=== PATIENT | male | born 1980 | race Caucasian/White ===

== ENCOUNTER → 2019-05-03 10:47 | Outpatient (CLI) | payer BC, SELFPAY ==
[2019-05-03 10:20] VITALS: BMI 23.3
--- NOTE | 2019-05-03 10:51 | RAD_ITS ---
STUDY: X-RAY - LUMBAR SPINE REASON FOR EXAM: Male, 38 years old. Left-sided low back pain. TECHNIQUE: 5 view(s) of the lumbar spine were obtained including oblique views. COMPARISON: None FINDINGS: There is straightening of the normal lumbar lordosis. There is no substantial scoliosis. There is a normal alignment of the vertebrae. Normal vertebral bodies and endplates. Normal disc space heights. Phleboliths are seen in the left hemipelvis. RAD/L/S Spine Min 4 Views IMPRESSION: Straightening of the normal lumbar lordosis. Electronically Signed: Abad Enamorado, at 12:21 EDT , Service support ,
== END ==
PROVIDERS: Referring Provider Physician Assistant Surgical; Visit Provider Physician Assistant Surgical
DX: S39.012A Strain of muscle, fascia and tendon of lower back, initial encounter (principal)
CPT/HCPCS: 72110

== ENCOUNTER 2025-05-17 18:15 | Emergency (ER) | payer SELFPAY ==
[2025-05-17 18:15] VITALS: BP 132/103; PULSE 58; RESP 18; TEMP 37.1; O2SAT 100; BMI 21.2
--- NOTE | 2025-05-17 18:29 | EDS_ITS ---
HPI History of Present Illness Chief Complaint: Wound Detail of Chief Complaint: Infection due to brown recluse spider bite. Informant: patient Onset/Context/Timing Onset: Days Context: Sudden Onset Timing: Continuous Quality: Noted blisters dorsum of his foot that with redness dorsum of the foot note Location: Dorsum left foot Current Severity: Mild Maximum Severity: Moderate Worsened by: Wearing a camping equipment that rubbed on his foot. Relieved by: Nothing Associated Symptoms Associated Symptoms: Did not feel his normal self Narrative Narrative: Patient is a 44-year-old male. He lives in [place]. [place] [facility] [place]. He denies fever, chills night sweats. He denies history rheumatic fever, heart murmur etc. He is concerned because it is painful, red and there are blisters noted. He is on no immunosuppressive meds. Prior similar symptoms: No Recent Illness/Hospitalization: No [facility] Medical History Anemia Home Medications ?Medication ?Instructions ?Recorded ?Last Taken ?Type naproxen sodium 220 mg capsule 220 mg PO BID 05/03/19 Unknown History (Aleve) prednisone 10 mg tablet PO #30 tabs 05/03/19 Unknown History cephalexin 500 mg capsule 500 mg PO Q6 #27 CAPSULES Unknown Rx sulfamethoxazole 800 1 tab PO BID #13 TABLETS 12/10 Unknown Rx mg-trimethoprim 160 mg tablet Allergy/AdvReac Type Severity Reaction Status Date / Time No Known Allergies Allergy Verified 05/17/25 18:15 Surgical History History of knee surgery Social History Smoking Status: Light Smoker (<10/day) alcohol intake: current alcohol intake frequency: a few times a week Alcohol type: beer ROS ROS ED Constitutional Constitutional ED: Denies chills, fever(s), subjective or sweats Gastrointestinal Gastrointestinal: Denies nausea or vomiting Integumentary Reports rash; Denies abscess or Abrasions Neurologic Neurologic: Denies paresthesias or weakness Hematologic/Lymphatic Hematologic/Lymphatic: Denies easy bleeding, easy bruising or lymphadenopathy EXAM Physical Exam Const Vital Signs: 05/17/25 18:15 Temperature 98.7 F Temperature Source Oral Pulse Rate 58 L Respiratory Rate 18 Blood Pressure 132/103 H Blood Pressure Mean 112 Pulse Ox 100 Oxygen Delivery Method Room Air Positive well nourished and well developed General Appearance ED: well developed and NAD; Negative for cyanotic, diap horetic or pallor HEENT HEENT Narrative: Head is atraumatic no cephalic. Ears normal. Nares patent. Eyes PERRL and EOMs intact bilaterally General Eye ED: Negative for scleral icterus Resp normal respiratory effort and clear to auscultation bilaterally Cardio regular rate, regular rhythm, S1 normal heart sound, S2 normal heart sound and no murmurs Extremity Negative for normal to inspection Extremity Narrative: Patient has area of erythema that is 3 x 4 cm dorsum of the foot. There are 2 blisters noted over in the middle of the erythema. There is no lymphangitis. There is no popliteal nick lymphadenopathy. There is no induration. The area is slightly warm. Neuro oriented x3, CN's II-XII intact bilaterally and no sensory deficits noted Motor Exam: strength 5/5 throughout Psych mental status grossly normal Skin No no rashes or lesions noted, no wounds and skin turgor normal General Skin Exam: elasticity normal; Negative for jaundice or pallor MDM MDM MDM Narrative Medical decision making narrative: Needle aspirate was undertaken. There is no fluid aspirated. The area erythema was demarcated with a skin pen. Patient received first dose of antibiotics in the emergency department and was prescribed 7-day course of antibiotics. He was instructed to return since he is not from this area if symptoms do not improve in 48 hours. Discharge Plan Triage Chief Complaint: Wound ED Provider: Luan Pandey Dx/Rx/DC Orders Clinical Impression: Cellulitis of foot without toes, right, Elevated blood-pressure reading without diagnosis of hypertension Instructions: ED Cellulitis Prescriptions: New sulfamethoxazole-trimethoprim 800-160 mg tablet 1 tab PO BID Qty: 13 0RF cephalexin 500 mg capsule 500 mg PO Q6 Qty: 27 0RF No Action prednisone 10 mg tablet PO Qty: 30 naproxen sodium [Aleve] 220 mg capsule 220 mg PO BID Activity Restrictions/Additional Instructions: If there is no improvement within 48 hours or the redness goes beyond the atkins by 1 to 2 cm return to the emergency department Take antibiotics as prescribed until gone Print Language: Romanian Disposition Disposition: Home, Self Care
--- OUTSIDE RECORDS SUMMARY | 2025-05-17 18:46 | XMS RPT_ITS | CCD ---
Author Organization [facility] Care Team Providers Care Gaming Cashier Name Role Phone TEODORO WHITAKER Attending Unavailable NO, PHYSICIAN Primary Care Unavailable No, Physician Primary Care Provider Unavailabl e Medications Current Medications Medication Drug Class(es) Dates Sig (Normalized) Sig (Original) cephalexin 500 mg oral capsule (1 source) Cephalosporin Antibacterial Start: 04-07-2019 End: 04-14-2019 take 1 capsule by mouth three times daily cephALEXin (KEFLEX) 500 MG capsule Take 1 (one) capsule (500 mg total) by mouth 3 (three) times a day for 7 days . 21 capsule 0 04/07/2019 04/14/2019 Active Problems Problem Classification Problem Date Documented Da te Episodic/Chronic Skin and subcutaneous tissue infections (1 source) Cellulitis and abscess of buttock; Translations: [Cellulitis and abscess of buttock] Episodic Results Test Name Value Interpretation Reference Range Facil ity L/S Spine Min 4 Viewson 04-15 L/S Spine Min 4 Views [facility] Imaging Services [address] [place] [address] L/S Spine Min 4 Views MR#: [id number] Acct: [id number] Name: EDIL STEPHENS Rep #: [id number] : 1980 M 38 From: Abad Enamorado MD PCP: Status: REG CLI Study: L/S Spine Min 4 Views Date of Exam: 05/03/19 Exam# [id number] Ordering Dr: Chivo Montalvo STUDY: X-RAY - LUMBAR SPINE REASON FOR EXAM: Male, 38 years old. Left-sided low back pain. TECHNIQUE: 5 view(s) of the lumbar spine were obtained including oblique views. COMPARISON: None FINDINGS: There is straightening of the normal lumbar lordosis. There is no substantial scoliosis. There is a normal alignment of the vertebrae. Normal vertebral bodies and endplates. Normal disc space heights. Phleboliths are seen in the left hemipelvis. RAD/L/S Spine Min 4 Views IMPRESSION: Straightening of the normal lumbar lordosis. Electronically Signed: Abad Matthewgabe, at 12:21 EDT , Service support , CC: Chivo CLAY [facility] Representative: Signed Normal [facility] Visit Reporton 0 05-03-2019 Urgent Care Visit Report [facility] [address] [place] [address] [address] [place] [address] OFFICE VISIT Date of Service: 05/03/19 MR#: [id number] Acct: [id number] Name: EDIL STEPHENS Rep #: [id number] : 1980 Provider: Chivo CLAY Age/Sex: 38/M Location: [facility] Status: Signed Intake Vital Signs05/03/19 Height 6 ft 05/03/19 Weight: 172 lb 05/03/19 Body Mass Index (BMI) 23.3 05/03/19 Blood Pressure 130/82 H Intake Visit Reasons: ? Allergies No Known Allergies Allergy (Unverified 05/03/19 10:21) Medications naproxen sodium 220 mg capsule 220 mg PO BID 05/03/19 [History Confirmed 05/03/19] prednisone 10 mg tablet PO #30 tab 05/03/19 [History Confirmed 05/03/19] [facility] Medical History (Updated 05/03/19 @ 10:34 by OBED Joya) Anemia (Acute) Surgical History (Updated 05/03/19 @ 10:22 by Liliana Blankenship) History of knee surgery (Acute) Social History (Updated 05/03/19 @ 17:00 by OBED Joya) Smoking Status: Light Smoker (<10/day) alcohol intake: current alcohol intake frequency: a few times a week Alcohol type: beer HPI HPI Details: EDIL STEPHENS, is a 38 M who presents to the office today for complaint of left-sided back and upper leg pain. Patient does report a history of thoracic vertebra compression fracture 15 years ago. 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 He states that the pain is worse at night after he stops moving but as long as he is walking around during the day his pain is almost nonexistent. He does state that the pain does cause him to wake up in the middle the night however when he goes to bed initially he has no pain. He does state that he has had some tingling in the toes of his left foot and down the left calf however he denies any numbness, or loss of range of motion. No other associated symptoms or alleviating/aggravatin g factors. ROS Const Constitutional: Positive for other (6 system ROS completed with pertinent findings in the HPI otherwise normal.) Exam Const General: cooperative, healthy appearing Musc Cervical Spine: normal cervical lordosis and cervical ROM normal Thoracic/Lumbar Spine: thoraco-lumbar ROM normal, paraspinal tenderness on the left in the lower lumbar Other: Pain to palpation over the sciatic nerve with no midline tenderness. Patient remains with full range of motion, sensation and distal pulses. Skin General: no rashes or lesions noted Neuro General: alert, CN's II-XI intact bilaterally Gait: normal gait Extrem General: normal to inspection, full ROM, normal capillary refill, normal gait Psych Appearance: grossly normal Mental Status: mental status grossly normal Assessment AND Plan Problems 1. Strain of lumbar region, initial encounter S39.012A Status Acute Plan X-ray of the spine read by myself as normal. Awaiting radiology interpretation of patient discharge. Patient given referral to physical therapy for the left leg pain and back pain. Advised he may use ibuprofen or Tylenol as needed for pain as well as rest, ice. Patient advised of potential red flags and when appropriate to report to the ED. Patient verbalized understanding and agreement with all the above Orders Orders: Referrals: Coding Level of Care Code Off vis,new,level 4 Diagnoses Strain of lumbar region, initial encounter S39.012A Encounter type: initial encounter 05/03/19 1700 Date Chivo Restrepoigner Signature: Date (if applicable) CC: Normal [facility] Vital Signs Date Time Vital Sign Value Performing Clinician Faci litjo 04-07-2019 11:23-0400 BP Diastolic 87 mm[Hg] Teodoro marr [facility] 04-07-2019 11:23-0400 BP Systolic 138 mm[Hg] Teodoro orozco [facility] 04-07-2019 11:04-0400 Body Temperature 97.3 [degF] Teodoro Whitaker [facility] 04-07-2019 11:04-0400 Body weight 78.02 kg Teodoro orozco [facility] 04-07-2019 11:04-0400 Pulse (Heart Rate) 61 /min Shameka Whitaker [facility] 04-07-2019 11:04-0400 Pulse Oximetry 98 % Teodoro wilder [facility] 04-07-2019 11:04-0400 Respiratory Rate 12 /min Teodoro Whitaker [facility] Encounters Encounter Date Encounter Type Care Provider Facility Start: 04-07-2019 End: 04-07-2019 Patient encounter procedure TEODORO WHITAKER [facility] Start: 04-07-2019 End: 04-07-2019 Office outpatient visit 25 minutes Teodoro Whitaker Work Phone: [facility] Comment on above: Cellulitis and absce ss of buttock (Primary Dx) Plan of Treatment Date Care Activity Detail Author Start: 06-16-2019 Influenza vaccination given SE QUENTIAL INFLUENZA VACCINE (Season Ended) [facility] Start: 1984 History and physical examination, annual for health maintenance Wellness Visit [facility] Start: 1980 Tetanus vaccination TETANUS EVERY 10 YR [facility] Payers Date Payer Category Payer Unknown [id number] 2017 Unknown MARKOS PAL/PREF/HMO/PPO xxxxxxxxxxxx 2017-Present [id number] 1980 Unknown [id number] Social History Date Type Detail Facility Start: 04-07-2019 Tobacco smoking status NEIS Current every day smoker [facility] History of tobacco use Cigarette Smoker [facility] Start: 04-07-2019 Cigarettes smoked cu rrent (pack per day) - Reported [facility] Sex Assigned At Not on file [place] [facility] Summary Purpose Family History No Family History Records FoundNo Family History Records Found Advance Directives Documents on File Type Date Recorded Patient Real Estate Closing Coordinator Expl anation Advance Directives and Living Will Instructions * Patient Instructions* Teodoro Whitaker PA-C - 04/07/2019 11:18 AM EDT Cellulitis: Care Instructions Your Care Instructions Cellulitis is a skin infection caused by bacteria, most often strep or staph. It often occurs aftera break in the skin from a scrape, cut, bite, or puncture, or after a rash. Cellulitis may be treated without doing tests to find out what caused it. But your doctor may do tests, if needed, to look for a specific bacteria, like methicillin-resistant Staphylococcus aureus (MRSA). The doctor has checked you carefully, but problems can develop later. If you notice any problems ornew symptoms, get medical treatment right away. Follow-up care is a granados part of your treatment and safety. Be sure to make and go to all appointments, and call your doctor if you are having problems. It's also a good idea to know your test resultsand keep a list of the medicines you take. How can you care for yourself at home? Take your antibiotics as directed. Do not stop taking them just because you feel better. You need to take the full course of antibiotics. Prop up the infected area on pillows to reduce pain and swelling. Try to keep the area above the level of your heart as often as you can. If your doctor told you how to care for your wound, follow your doctor's instructions. If you did not get instructions, follow this general advice: ? Wash the wound with clean water 2 times a day. Don't use hydrogen peroxide or alcohol, which can slow healing. ? You may cover the wound with a thin layer of petroleum jelly, such as Vaseline, and a nonstick bandage. ? Apply more petroleum jelly and replace the bandage as needed. Be safe with medicines. Take pain medicines exactly as directed. ? If the doctor gave you a prescription medicine for pain, take it as prescribed. ? If you are not taking a prescription pain medicine, ask your doctor if you can take an [id number] medicine. To prevent cellulitis in the future Try to prevent cuts, scrapes, or other injuries to your skin. Cellulitis most often occurs where there is a break in the skin. If you get a scrape, cut, mild burn, or bite, wash the wound with clean water as soon as you can tohelp avoid infection. Don't use hydrogen peroxide or alcohol, which can slow healing. If you have swelling in your legs (edema), support stockings and good skin care may help prevent leg sores and cellulitis. Take care of your feet, especially if you have diabetes or other conditions that increase the risk of infection. Wear shoes and socks. Do not go barefoot. If you have athlete's foot or other skin problems on your feet, talk to your doctor about how to treat them. When should you call for help? Call your doctor now or seek immediate medical care if: You have signs that your infection is getting worse, such as: ? Increased pain, swelling, warmth, or redness. ? Red streaks leading from the area. ? Pus draining from the area. ? A fever. You get a rash. Watch closely for changes in your health, and be sure to contact your doctor if: You do not get better as expected. Where can you learn more? Log into your personal health record on https://SpecifiedByt.yepme.com and enter X309 in the Education box to learn more about Cellulitis: Care Instructions. Current as of: January 30, 2018 Content Version: 12.0 6882-4454 [employer]. Care instructions adapted under license by your healthcare professional. If you have questions about a medical condition or this instruction, always ask your healthcare professional. [employer] disclaims any warranty or liability for your use of this information. Please follow up with your family doctor in three to five days or sooner if worse. Discussed over the counter medications for symptomatic management and side effects of medications. Recommended taking all medications with food and to stop medications if they develop any signs of anallergic reaction. Educated patient and/or guardian about signs and symptoms that would warrant further immediate evaluation. Recommended that they should return to urgent care, make an appointment with their family physician, or go to the emergency room if symptoms persist or get acutely worse. Recommended follow upwithin the next week with their PCP or to get established with a PCP soon in order to follow up appropriately. documented in this encounter History of Present Illness * Teodoro Whitaker PA-C - 04/07/2019 12:11 PM EDT Subjective: Edil Stephens is a 38 y.o. male being seen 04/07/19 for Rash (rash on L buttcheek; spreading; started Monday when he noticed it) Ran last week and used body anti chaffing product and his underwear was rubbing on the back of his left upper leg. It has now become red and tender to the touch. Rash This is a new problem. The current episode started in the past 7 days. The problem has been gradually worsening since onset. The affected locations include the left buttock and left upper leg. The rash is characterized by burning, dryness, pain, redness and swelling. He was exposed to a new detergent/soap. Pertinent negatives include no anorexia, congestion, cough, diarrhea, eye pain, facial edema, fatigue, fever, joint pain, nail changes, rhinorrhea, shortness of breath, sore throat or vomiting. Past treatments include nothing. The treatment provided no relief. There is no history of allergies, asthma, eczema or varicella. Review of Systems Constitutional: Negative for fatigue and fever. HENT: Negative for congestion, rhinorrhea and sore throat. Eyes: Negative for pain. Respiratory: Negative for cough and shortness of breath. Gastrointestinal: Negative for anorexia, diarrhea and vomiting. Musculoskeletal: Negative for joint pain. Skin: Positive for rash. Negative for color change, nail changes, pallor and wound. Histories: Current Outpatient Medications Medication Sig Dispense Refill cephALEXin (KEFLEX) 500 MG capsule Take 1 (one) capsule (500 mg total) by mouth 3 (three) times a day for 7 days . 21 capsule 0 No current facility-administered medications for this visit. No Known Allergies History reviewed. No pertinent past medical history. Past Surgical History: Procedure Laterality Date KNEE SURGERY Left 2008 Family History Problem Relation Age of Onset No Known Problems Mother No Known Problems Father Social History Socioeconomic History Marital status: Spouse name: Not on file Number of children: Not on file Years of education: Not on file Highest education level: Not on file Occupational History Not on file Social Needs Financial resource strain: Not on file Food insecurity: Worry: Not on file Inability: Not on file Transportation needs: Medical: Not on file Non-medical: Not on file Tobacco Use Smoking status: Current Every Day Smoker Packs/day: 0.50 Types: Cigarettes Smokeless tobacco: Never Used Substance and Sexual Activity Alcohol use: Not on file Drug use: Not on file Sexual activity: Not on file Lifestyle Physical activity: Days per week: Not on file Minutes per session: Not on file Stress: Not on file Relationships Social connections: Talks on phone: Not on file Gets together: Not on file Attends moravian service: Not on file Active member of club or organization: Not on file Attends meetings of clubs or organizations: Not on file Relationship status: Not on file Other Topics Concern Not on file Social History Narrative Not on file Social History Tobacco Use Smoking Status Current Every Day Smoker Packs/day: 0.50 Types: Cigarettes Smokeless Tobacco Never Used Social History Substance and Sexual Activity Drug Use Not on file Social History Substance and Sexual Activity Sexual Activity Not on file Objective: BP 138/87 Pulse 61 Temp 97.3 F (36.3 C) (Tympanic) Resp 12 Wt 78 kg (172 lb) SpO2 98% Physical Exam Constitutional: He is oriented to person, place, and time. He appears well- developed and well-nourished. HENT: Head: Normocephalic. Eyes: Pupils are equal, round, and reactive to light. Conjunctivae are normal. Musculoskeletal: Normal range of motion. Neurological: He is alert and oriented to person, place, and time. Skin: Skin is warm and dry. Rash noted. No abrasion, no bruising, no burn, no ecchymosis, no laceration, no lesion and no petechiae noted. Rash is macular. There is erythema. No pallor. Nursing note and vitals reviewed. Test Results: No results found for this or any previous visit (from the past 168 hour(s)). Procedure: Procedures Assessment/ Plan: Edil was seen today for rash. Diagnoses and all orders for this visit: Cellulitis and abscess of buttock Other orders - cephALEXin (KEFLEX) 500 MG capsule; Take 1 (one) capsule (500 mg total) by mouth 3 (three) times a day for 7 days . Discussed over the counter medications for symptomatic management and side effects of medications. Recommended taking all medications with food and to stop medications if they develop any signs of anallergic reaction. Educated patient and/or guardian about signs and symptoms that would warrant further immediate evaluation. Recommended that they should return to urgent care, make an appointment with their family physician, or go to the emergency room if symptoms persist or get acutely worse. Recommended follow upwithin the next week with their PCP or to get established with a PCP soon in order to follow up appropriately. Teodoro Whitaker PA-C 04/07/19 documented in this encounter Assessments Diagnosis Cellulitis and abscess of buttock- Primary Additional Source Comments (unrecognized sect ion and content) No Status Records FoundNo Status Records Found INFORMATION SOURCE (unrecogn ized section and content) DATE CREATED AUTHOR 05/03/2019 [facility] DATE CREATED AUTHOR AUTHOR'S ORGANIZ ATION 11/08/2020 [facility] Reason for Visit (unrecogniz ed section and content) Reason Comments Rash rash on L buttcheek; spreading; started Monday when he noticed it FOR RECORDS PERTAINING TO PATIENTS WHO ARE OR HAVE BEEN ENROLLED IN A CHEMICAL DEPENDENCY/SUBSTANCEABUSE PROGRAM, SOME INFORMATION MAY BE OMITTED. This clinical summary was aggregated from multiple sources. Caution should be exercised in using it in the provision of clinical care. This summary normalizes information from multiple sources, and as a consequence, information in this document may materially change the coding, format and clinical context of patient data. In addition, data may be omitted in some cases. CLINICAL DECISIONS SHOULD BE BASED ON THE PRIMARY CLINICAL RECORDS. [facility] [facility]. provides no warranty or guarantee of the accuracy or completeness of information in this document.
[2025-05-17] MEDS: Smz/Tmp Ds Tablet 1 TABLET PO (19:39)
[2025-05-17 19:45] VITALS: BP 138/88; PULSE 66; RESP 16; TEMP 36.9; O2SAT 97
== END 2025-05-17 19:45 | disposition home or self-care (01) ==
LOC: ED 18:45
PROVIDERS: Emergency Provider Emergency Medicine; Visit Provider Emergency Medicine
DX: L03.116 Cellulitis of left lower limb (principal); R03.0 Elevated blood-pressure reading, without diagnosis of hypertension; F17.200 Nicotine dependence, unspecified, uncomplicated
CPT/HCPCS: 10021; 99283

== ENCOUNTER → 2025-05-20 | Outpatient (CLI) | payer SELFPAY ==
[2025-05-20 10:14] LABS: Hematocrit 49.3 % (40-54); Hemoglobin 16.6 g/dL (13.0-16.5); Immature Granulocytes Count 0.010 X10^3/uL (0.0-0.0); Mean Corp Hgb Conc 33.7 g/dL (32-36); Mean Corpuscular Volume 103.1 fL (80-94); Mean Platelet Vol. 10.2 fl (6.2-12.0); NRBC Flagged by Analyzer 0 % (0-5); Platelet Count 196 K/mm3 (150-450); RBC Distribution Width CV 14.3 % (11.6-14.6); RBC Distribution Width SD 54.8 fl (35.1-43.9); Red Blood Count 4.78 M/mm3 (4.6-6.2); White Blood Count 3.6 K/mm3 (4.4-11.0)
[2025-05-20 11:52] LABS: AST(SGOT) 61 U/L (<=37); Alanine Aminotransfer ALT/SGPT 29 U/L (<=46); Albumin, Serum 3.7 g/dL (3.5-5.0); Alkaline Phosphatase 144 U/L (40-129); Anion Gap 11 (5-15); BUN 7 mg/dL (4-19); BUN/Creat Ratio 9.1 RATIO (10-20); CRP < 3.00 mg/L (0.0-3.0); Calcium,Total 8.9 mg/dL (7.6-11.0); Carbon Dioxide 23.4 mmol/L (21.0-32.0); Chloride 104 mmol/L (98-108); Globulin 2.8 g/dL (2.2-4.2); Glucose 110 mg/dL (70-99); Potassium 4.4 mmol/L (3.3-5.1)
[2025-05-21 13:08] LABS: Lyme Scn Total Ab w/Rflx Positive (Negative)
== END | disposition home or self-care (01) ==
LOC: MFPLAB 09:03
PROVIDERS: PCP Family Medicine; Referring Provider Family Medicine; Visit Provider Family Medicine
DX: R53.81 Other malaise (principal); R53.83 Other fatigue
CPT/HCPCS: 36415; 80053; 84443; 85025; 86140; 86618